=== PATIENT | male | born 1980 | race Caucasian/White ===

== ENCOUNTER 2024-11-17 16:04 | Emergency (ER) | payer OTHER, MEDICAID ==
[~2024-11-17] VITALS: Ht 167.6 cm; Wt 83.0 kg
[2024-11-17 16:18] VITALS: O2SAT 100
[2024-11-17] MEDS: MECLIZINE 25MG TABLET PO ONE (16:57)
[2024-11-17 17:13] LABS: BASOPHILS % 0.3 % (0.0-2.0); EOSINOPHILS % 0.7 % (0.0-5.0); HEMATOCRIT. 43.1 % (42.0-52.0); HEMOGLOBIN. 14.3 g/dL (14.0-18.0); MEAN CORPUSCULAR HEMOGLOBIN 29.7 pg (28.0-32.0); MEAN CORPUSCULAR HGB CONC 33.3 g/dL (31.0-37.0); MEAN CORPUSCULAR VOLUME 89.3 fL (80.0-94.0); MEAN PLATELET VOLUME 8.5 fl (7.4-10.4); MONOCYTES % 10.3 % (2.0-8.0); NEUTROPHILS % 55.7 % (40.0-76.0); PLATELET 270 x1000/uL (130-400); RED BLOOD CELL COUNT 4.82 mill/uL (4.7-6.1); RED CELL DISTRIBUTION WIDTH 13.5 % (11.6-14.6); WHITE BLOOD COUNT 9.4 x1000/uL (4.5-11.0)
[2024-11-17 17:16] LABS: CHLORIDE 103 mEq/L (98-107); POTASSIUM 4.3 mEq/L (3.5-5.1); SODIUM 140 mEq/L (136-145)
[2024-11-17 17:17] LABS: CARBON DIOXIDE 28 mEq/L (21-32)
[2024-11-17 17:18] LABS: CALCIUM 9.9 mg/dL (8.7-10.4)
[2024-11-17 17:22] LABS: CREATININE 0.9 mg/dL (0.6-1.3); GLUCOSE 86 mg/dL (70-105); UREA NITROGEN BLOOD 14 mg/dL (9-23)
[2024-11-17 17:49] LABS: TROPONIN I HIGH SENSITIVITY < 4 ng/L (3.0-53)
[2024-11-17] MEDS ORDERED: MECL-299 MT (18:35)
[2024-11-17 18:45] VITALS: BP 117/80; PULSE 68; RESP 18; TEMP 36.8; O2SAT 99
== END 2024-11-17 18:40 | disposition home or self-care (01) ==
LOC: ER 16:04 → EDBEDREQ 17:45 → EDBEDREQTM 17:45 → ER 18:40
DX: R42 Dizziness and giddiness (principal)
CPT/HCPCS: 99284; 70450; 80048; 85025; 84484; 36415; 93005; J8597